=== PATIENT | male | born 1945 | race Caucasian/White ===

== ENCOUNTER 2017-05-19 14:09 | Inpatient (IN) | payer MEDICARE, MEDICAID ==
[~2017-05-19] VITALS: Ht 162.6 cm; Wt 65.8 kg
[2017-05-19] MEDS ORDERED: ONDANSETRON HCL 4MG/2ML VIAL IV STA (14:55)
[2017-05-19] MEDS ORDERED: SODIUM CHLORIDE 0.9% 1,000 ML IV ONE (14:55)
[2017-05-19] MEDS ORDERED: MORPHINE SULFATE 4 MG/ML CPJ (NOT FOR IM USE) IV STA (14:55)
[2017-05-19 15:33] LABS: BASOPHILS % 0.1 % (0.0-2.0); HEMATOCRIT. 44.2 % (42.0-52.0); HEMOGLOBIN. 14.8 g/dL (14.0-18.0); LYMPHOCYTES % 10.3 % (20.0-50.0); MEAN CORPUSCULAR HEMOGLOBIN 26.2 pg (28.0-32.0); MEAN CORPUSCULAR VOLUME 78.2 fL (80.0-94.0); MEAN PLATELET VOLUME 8.8 fl (7.4-10.4); MONOCYTES % 12.8 % (2.0-8.0); NEUTROPHILS % 76.8 % (40.0-76.0); PLATELET 209 x1000/uL (130-400); RED BLOOD CELL COUNT 5.65 mill/uL (4.7-6.1)
[2017-05-19 15:34] LABS: CHLORIDE 96 mEq/L (98-107)
[2017-05-19 15:36] LABS: PROTHROMBIN TIME 10.8 sec (9.4-11.6)
[2017-05-19] MEDS ORDERED: CLONIDINE 0.1MG TABLET PO NR (15:45)
[2017-05-19 15:46] LABS: CARBON DIOXIDE 29 mEq/L (21-32); ETHANOL BLOOD < 10 mg/dL; TROPONIN I < 0.02 ng/mL (0.00-0.04)
[2017-05-19] MEDS ORDERED: MORPHINE SULFATE 4 MG/ML CPJ (NOT FOR IM USE) IV ONE (17:30)
[2017-05-19] MEDS ORDERED: ONDANSETRON HCL 4MG/2ML VIAL IV ONE (17:30)
[2017-05-19 20:50] VITALS: BP 139/78
[2017-05-19 21:00] VITALS: BP 139/78
[2017-05-19] MEDS ORDERED: MORPHINE SULFATE 4 MG/ML CPJ (NOT FOR IM USE) IV PRN (21:30)
[2017-05-19] MEDS: POTASSIUM CHLORIDE INJ 10 MEQ in DEXT 5%/0.9% NACL 1,000 ML IV SCH (23:50)
[2017-05-20] VITALS (7 sets, daily range): BP systolic 112–131; BP diastolic 65–71
[2017-05-20] MEDS: MORPHINE SULFATE 4 MG/ML CPJ (NOT FOR IM USE) IV PRN ×6 (02:12→22:49)
[2017-05-20] MEDS: POTASSIUM CHLORIDE INJ 10 MEQ in DEXT 5%/0.9% NACL 1,000 ML IV SCH ×3 (06:23→21:21)
[2017-05-20] MEDS: PANTOPRAZOLE SODIUM 40 MG/VIAL IV SCH (09:26)
[2017-05-20 09:27] LABS: BASOPHILS % 0.2 % (0.0-2.0); EOSINOPHILS % 0.2 % (0.0-5.0); HEMATOCRIT. 41.7 % (42.0-52.0); HEMOGLOBIN. 13.8 g/dL (14.0-18.0); LYMPHOCYTES % 19.9 % (20.0-50.0); MEAN CORPUSCULAR HEMOGLOBIN 26.2 pg (28.0-32.0); MEAN CORPUSCULAR VOLUME 79.3 fL (80.0-94.0); MONOCYTES % 12.6 % (2.0-8.0); NEUTROPHILS % 67.1 % (40.0-76.0); PLATELET 177 x1000/uL (130-400); RED BLOOD CELL COUNT 5.26 mill/uL (4.7-6.1); RED CELL DISTRIBUTION WIDTH 13.8 % (11.6-14.6)
[2017-05-20 09:41] LABS: CARBON DIOXIDE 33 mEq/L (21-32); CHLORIDE 97 mEq/L (98-107)
[2017-05-20] MEDS: ONDANSETRON HCL 4MG/2ML VIAL IV PRN (22:55)
[2017-05-21] VITALS (7 sets, daily range): BP systolic 113–134; BP diastolic 68–76
[2017-05-21] MEDS: ONDANSETRON HCL 4MG/2ML VIAL IV PRN (03:12)
[2017-05-21] MEDS: MORPHINE SULFATE 4 MG/ML CPJ (NOT FOR IM USE) IV PRN ×5 (03:12→22:50)
[2017-05-21] MEDS: POTASSIUM CHLORIDE INJ 10 MEQ in DEXT 5%/0.9% NACL 1,000 ML IV SCH ×4 (03:13→22:50)
[2017-05-21 05:52] LABS: HEMATOCRIT. 39.4 % (42.0-52.0); HEMOGLOBIN. 12.8 g/dL (14.0-18.0); MEAN CORPUSCULAR HEMOGLOBIN 26.1 pg (28.0-32.0); MEAN CORPUSCULAR VOLUME 80.3 fL (80.0-94.0); MEAN PLATELET VOLUME 9.1 fl (7.4-10.4); PLATELET 175 x1000/uL (130-400); RED CELL DISTRIBUTION WIDTH 14.3 % (11.6-14.6)
[2017-05-21 06:29] LABS: CARBON DIOXIDE 32 mEq/L (21-32); CHLORIDE 104 mEq/L (98-107)
[2017-05-21 07:29] LABS: *AMPHETAMINES SCREEN URINE NEGATIVE (NEGATIVE); *BARBITURATES SCREEN URINE NEGATIVE (NEGATIVE); *BENZODIAZEPINES SCREEN URINE NEGATIVE (NEGATIVE); *COCAINE SCREEN URINE NEGATIVE (NEGATIVE); CANNABINOID URINE SCREEN NEGATIVE (NEGATIVE); METHADONE URINE SCREEN NEGATIVE (NEGATIVE); OPIATES URINE SCREEN PRESUMTIVE POSITIVE (NEGATIVE); PHENCYCLIDINE URINE SCREEN NEGATIVE (NEGATIVE)
[2017-05-21] MEDS: PANTOPRAZOLE SODIUM 40 MG/VIAL IV SCH (08:53)
[2017-05-21 13:47] LABS: PLATELET ESTIMATE NORMAL
[2017-05-22 04:00] VITALS: BP 129/74
[2017-05-22] MEDS: ONDANSETRON HCL 4MG/2ML VIAL IV PRN ×2 (04:15→20:19)
[2017-05-22] MEDS: POTASSIUM CHLORIDE INJ 10 MEQ in DEXT 5%/0.9% NACL 1,000 ML IV SCH ×3 (06:59→22:00)
[2017-05-22] MEDS: MORPHINE SULFATE 4 MG/ML CPJ (NOT FOR IM USE) IV PRN ×4 (07:02→21:19)
[2017-05-22 08:00] VITALS: BP 126/70
[2017-05-22] MEDS: PANTOPRAZOLE SODIUM 40 MG/VIAL IV SCH (09:10)
[2017-05-22 11:55] LABS: HEMATOCRIT. 36.6 % (42.0-52.0); HEMOGLOBIN. 11.9 g/dL (14.0-18.0); MEAN CORPUSCULAR HEMOGLOBIN 26.2 pg (28.0-32.0); MEAN CORPUSCULAR VOLUME 80.6 fL (80.0-94.0); MEAN PLATELET VOLUME 8.7 fl (7.4-10.4); PLATELET 179 x1000/uL (130-400); RED BLOOD CELL COUNT 4.54 mill/uL (4.7-6.1); RED CELL DISTRIBUTION WIDTH 14.1 % (11.6-14.6)
[2017-05-22 12:00] VITALS: BP 119/70
[2017-05-22 12:08] LABS: CARBON DIOXIDE 30 mEq/L (21-32); CHLORIDE 108 mEq/L (98-107)
[2017-05-22 16:00] VITALS: BP 125/74
[2017-05-22 20:00] VITALS: BP 117/68
[2017-05-22 22:19] LABS: ATYPICAL LYMPHOCYTES 1; PLATELET ESTIMATE NORMAL
[2017-05-23] VITALS: BP 112/65
[2017-05-23 04:00] VITALS: BP 117/62
[2017-05-23 07:48] VITALS: BP 121/71
[2017-05-23] MEDS: POTASSIUM CHLORIDE INJ 10 MEQ in DEXT 5%/0.9% NACL 1,000 ML IV SCH ×2 (08:39→15:57)
[2017-05-23] MEDS: PANTOPRAZOLE SODIUM 40 MG/VIAL IV SCH (08:39)
[2017-05-23] MEDS ORDERED: ACETAMINOPHEN 650MG SUPP PR NR (09:00)
[2017-05-23 12:00] VITALS: BP 117/66
[2017-05-23] MEDS: CEFTRIAXONE 1 G PREMIX 50 ML IV SCH (13:37)
[2017-05-23] MEDS: MORPHINE SULFATE 4 MG/ML CPJ (NOT FOR IM USE) IV PRN ×2 (13:37→18:43)
[2017-05-23 16:07] VITALS: BP 132/71
[2017-05-23] MEDS ORDERED: MAGNESIUM/ALUMINUM HYDROXIDE/SIMETHICONE 30ML UDC PO PRN (17:15)
[2017-05-23 20:00] VITALS: BP 135/135
[2017-05-23] MEDS: FAMOTIDINE 20MG/2ML VIAL IV SCH (21:46)
[2017-05-24] VITALS: BP 114/69
[2017-05-24] MEDS ORDERED: ACETAMINOPHEN 325MG TABLET PO PRN (00:45)
[2017-05-24 04:00] VITALS: BP 107/64
[2017-05-24] MEDS: POTASSIUM CHLORIDE INJ 10 MEQ in DEXT 5%/0.9% NACL 1,000 ML IV SCH (05:02)
[2017-05-24 08:00] VITALS: BP 122/70
[2017-05-24] MEDS: CEFTRIAXONE 1 G PREMIX 50 ML IV SCH (09:00)
[2017-05-24] MEDS: FAMOTIDINE 20MG/2ML VIAL IV SCH (09:00)
== END 2017-05-24 12:15 | disposition left against medical advice (07) | DRG 247 ==
LOC: ER 14:29 → 8WST 17:20 → EDBEDREQ 17:20 → EDBEDREQTM 17:20 → EDBEDREQSVC 17:21 → ENRESERV 17:43
PROVIDERS: ADMIT Internal Medicine; ATTEND Internal Medicine
PROC: 0D9670Z Drainage of Stomach with Drainage Device, Via Natural or Artificial Opening (ICD-10-PCS; principal; 2017-05-19)
DX: K56.60 Unspecified intestinal obstruction (principal); R65.11 Systemic inflammatory response syndrome (SIRS) of non-infectious origin with acute organ dysfunction; N17.9 Acute kidney failure, unspecified; K86.1 Other chronic pancreatitis; E86.0 Dehydration; E87.1 Hypo-osmolality and hyponatremia; Z53.21 Procedure and treatment not carried out due to patient leaving prior to being seen by health care provider; R53.83 Other fatigue
CPT/HCPCS: 36415; 71010; 74000; 74176; 80048; 80053; 80305; 83605; 83690; 83735; 83880; 84484; 85025; 85610; 86850; 86900; 87040; 87086; 93005; 93970; 96361; 96374; 96375; 96376; 99285; C1893; C9113; G0482; J0696; J2270; J2405; J3480; J3490; J7030; J7042